=== PATIENT | female | born 1930 | race Two or more races ===

== ENCOUNTER 2016-12-03 22:40 | Inpatient (IN) | payer OTHER ==
--- NOTE | ~2016-12-03 | CR72 ---
[facility] A Service of [facility] & [facility] RADIOLOGY TEXT RESULTS PATIENT: EMILIANO MCCLOUD LOCATION: [facility] : 32 UNIT #: [id number] AGE: [address]: Yan Gonzalez MD SEX: F ORDER DR: [id number] [facility] [address] [place], [place] [address] [id number] I MR#: [id number] #: [id number] NAME: EMILIANO MCCLOUD : 1930 SEX: F STUDY DATE/TIME: 12/03/2016 22:31 UNIT: CED ROOM: 02855 STUDY DESCRIPTION: CR Chest Single View Portable Attending Physician: Yan Gonzalez M.D. Ordering Physician: Emmanuel Walls M.D. Primary Care Physician: No Primary Care Physician MEDICAL IMAGING REPORT This report is preliminary unless electronic signature is present EXAM Portable chest HISTORY Shortness of air and palpitations starting today. COMPARISON STUDIES 07/21/16 FINDINGS This portable view of the chest shows mild cardiomegaly. The lungs are clear. Minimal interstitial prominence is stable from prior studies. Bones are normal. Dictated by... Ebenezer Vivar M.D. THIS IS AN ELECTRONICALLY VERIFIED REPORT Ebenezer Vivar M.D. at 12/04/2016 9:55 PM REEMA/nathaniel TD: 12/04/2016 16:41 JOB #: [id number] MEDICAL IMAGING REPORT Page 1 of 1 COPY
--- NOTE | ~2016-12-03 | BMI ---
[facility] Nutrition Therapy DATE: 12/05/16 Patient: EMILIANO MCCLOUD Physician: LAURENT Address: [address] Room/Bed: [address] [place] [address], Zip: [place] [address] Admit Date: 12/03/16 Date of : [birth year] Height: 4 11 Weight: 214 97.5 HIGH BMI NOTE: DX: 86 yo female admitted for COPD ANTHROPOMETRICS: Ht: 4'11" Wt: 97.3 kg ( 214#) BMI: 43.3 DIET: Consistent carb INTERVENTION: 1. Consistent carb RECOMMENDATIONS: 1. Please add healthy heart diet restriction to promote gradual weight loss towards healthy BMI. RD will f/u per protocol. Respectfully, Snow Esteves, Moveman Yesica Ruiz MS, RD, LD [facility] cc: client file
--- NOTE | ~2016-12-03 | EKG ---
PATIENT: EMILIANO MCCLOUD UNIT #: [id number] Ventricular Rate: 162 BPM Atrial Rate: 153 BPM QRS Duration: 88 ms Q-T Interval: 316 ms QTC Calculation(Bezet): 518 ms Calculated R [place]: -36 degrees Calculated T [place]: 117 degrees Diagnosis Line: Atrial fibrillation with rapid ventricular Diagnosis Line: response Diagnosis Line: Left axis deviation Diagnosis Line: Septal infarct (cited on or before 04-DEC-2016) Diagnosis Line: ST and T wave abnormality, consider lateral ischemia Diagnosis Line: Abnormal ECG Diagnosis Line: When compared with ECG of 06-AUG-2016 01:07, Diagnosis Line: Vent. rate has increased BY 73 BPM Diagnosis Line: Serial changes of Septal infarct Present Diagnosis Line: Confirmed by OBDULIA CABALLERO MD ([id number]) on Diagnosis Line: 12/04/2016 3:57:19 PM INTERPRETING MD: JENNIFFER
--- NOTE | ~2016-12-03 | HP ---
Unit #: [id number] #: [id number] Patient: EMIILANO MCCLOUD [id number] [facility]. [place], [place] [address] [id number] MR#: [id number] NAME: EMILIANO MCCLOUD ROOM: 11347 Age: 86 Sex: F Admission Date: 12/04/2016 : 1930 Attending Physician: Yan Gonzalez M.D. Primary Care Physician: No Primary Care Physician HISTORY AND PHYSICAL CHIEF COMPLAINT Shortness of breath, cough and wheezing. DISCUSSION This is an 86-year-old female with a history of chronic A-fib, ejection fraction 50%, history of non-ST elevation NH, patient declined cardiac cath in the past, on medical treatment, hypertension, hyperlipidemia, diabetes, COPD, peripheral vascular disease. She is from [place], does not speak Greenlandic. Her daughter is at her bedside. She speaks fair Greenlandic. As per her, she has been having shortness of breath and cough and these symptoms got progressively worse. She says she has been out of Symbicort inhaler for almost two weeks and symptoms got worse. She came to the ER and found to be in COPD exacerbation with diffuse wheezing and eventually been admitted. She denies chest pain, she denies nausea, vomiting, fever. She has been having some cough which is mostly dry cough. PAST MEDICAL HISTORY 1. History of chronic A-fib with ejection fraction 55% with mild MR/left ventricular hypertrophy. Followed by Dr. Pranav Colmenares. 2. History of non-ST elevation NH in December 2013. She declined cardiac cath, on medical treatment. 3. Hyperlipidemia. 4. COPD. 5. Diabetes. 6. History of infectious colitis with lower GI bleed in November 2014. 7. Peripheral vascular disease. She has a history of head CT revealing mild chronic small vessel ischemic changes. 8. History of colonoscopy. 9. History of right axillary abscess requiring I and D in the past with positive MRSA. ALLERGIES She is allergic to penicillin. FAMILY HISTORY Negative for coronary artery disease, diabetes, hypertension in the family. SOCIAL HISTORY The patient is originally from [place], currently lives with her daughter. She does not drink alcohol. She smokes for about 56 years, now smoking very rarely. REVIEW OF SYSTEMS Unit #: [id number] #: [id number] Patient: EMILIANO MCCLOUD All review of systems negative except history of present illness. MEDICATIONS Medications from home as followin. Combivent inhaler p.r.n. 2. Hydroxyzine 10 mg three times daily p.r.n. 3. Nitro 0.4 mg sublingual p.r.n. 4. Symbicort 160/4.5, one puff b.i.d. 5. Potassium chloride 10 mEq daily. 6. Demadex 30 mg daily. 7. Starlix 120 mg three times daily. 8. Combivent four times daily. 9. Lopressor 50 mg daily. 10. Hydralazine 50 mg daily. 11. Stool softener 10 mg daily. 12. Rocaltrol 0.2 mg daily. 13. Imdur ER 60 mg daily. 14. Desyrel 25 mg at bedtime. 15. ProAir two puffs q.4 hours p.r.n. 16. Xarelto 15 mg daily. PHYSICAL EXAMINATION GENERAL: Elderly female lying in the bed comfortably, currently not in any distress. She is alert, awake, oriented x3. CURRENT VITAL SIGNS: Temperature 98.5, heart rate 96, respiratory rate 24, blood pressure 175/98. Oxygen 92% on room air. HEENT: Pupils equal, reactive to light and accommodation. Head is normocephalic, atraumatic. NECK: Supple. No JVD. LUNGS: Decreased air entry bilaterally with bilateral rhonchi. HEART: S1, S2. Regular. No murmur, no gallop. ABDOMEN: Soft, nontender, nondistended. Bowel sounds positive. EXTREMITIES: Trace pedal edema. NEURO: She is alert, oriented x4. Cranial nerves II-XII intact. No focal neurological deficits. Power 5/5. PSYCHIATRIC: She is anxious. SKIN: Normal, warm, dry. DIAGNOSTIC STUDIES LABORATORY: White count 10, hemoglobin 12, hematocrit 41, platelet 159. Troponin less than 0.05. INR is 1.1. Sodium 141, potassium 4.3, chloride 104, glucose 124, BUN 25, creatinine 1.4. LFTs within normal limits. Magnesium 1.7. Lactic acid 0.9. BNP 435. UA is negative. Troponin less than 0.05. IMAGING: Chest x-ray - no acute infiltrate. ASSESSMENT AND PLAN 1. Acute exacerbation of chronic obstructive pulmonary disease: Start on IV Solu-Medrol. Oxygen to keep respiration more than 19. 2. Chronic atrial fibrillation: That is controlled. Continue metoprolol and also Xarelto. 3. History of chronic diastolic congestive heart failure: Ejection fraction 55%. 4. History of coronary artery disease, on medical treatment: Patient received cardiac catheterization in the past. Unit #: [id number] #: [id number] Patient: EMILIANO MCCLOUD 5. Hypertension. 6. History of nonsustained ventricular tachycardia in the past. 7. Dyslipidemia. 8. Diabetes. 9. Deep venous thrombosis prophylaxis, on Xarelto. Dictated by Arnie Nogueira/conner TD: 12/04/2016 12:26 JOB #: [id number] HISTORY AND PHYSICAL Page 1 of 1 X X HISTORY AND PHYSICAL
--- NOTE | ~2016-12-03 | EKG ---
PATIENT: EMILIANO MCCLOUD UNIT #: [id number] Ventricular Rate: 96 BPM Atrial Rate: 107 BPM QRS Duration: 92 ms Q-T Interval: 342 ms QTC Calculation(Bezet): 432 ms Calculated R [place]: -36 degrees Calculated T [place]: 86 degrees Diagnosis Line: Atrial fibrillation Diagnosis Line: Left axis deviation Diagnosis Line: Cannot rule out Anterior infarct , age Diagnosis Line: undetermined Diagnosis Line: Abnormal ECG Diagnosis Line: No previous ECGs available Diagnosis Line: Confirmed by OBDULIA CABALLERO MD ([id number]) on Diagnosis Line: 12/04/2016 3:52:52 PM INTERPRETING MD: JENNIFFER
--- NOTE | ~2016-12-03 | EKG ---
PATIENT: EMILIANO MCCLOUD UNIT #: [id number] Ventricular Rate: 73 BPM Atrial Rate: 79 BPM QRS Duration: 92 ms Q-T Interval: 438 ms QTC Calculation(Bezet): 482 ms Calculated R [place]: -20 degrees Calculated T [place]: 42 degrees Diagnosis Line: Atrial fibrillation Diagnosis Line: Low voltage QRS Diagnosis Line: Abnormal ECG Diagnosis Line: When compared with ECG of 04-DEC-2016 07:49, Diagnosis Line: Vent. rate has decreased BY 89 BPM Diagnosis Line: Criteria for Septal infarct are no longer Present Diagnosis Line: ST no longer depressed in Anterolateral leads Diagnosis Line: T wave inversion no longer evident in Lateral Diagnosis Line: leads Diagnosis Line: Confirmed by CLAU VARGHESE MD ([id number]) on 12/06/2016 Diagnosis Line: 5:34:10 AM INTERPRETING MD: ABIMAEL FISHMAN
--- NOTE | ~2016-12-03 | CO ---
Unit #: [id number] #: [id number] Patient: EMILIANO MCCLOUD [id number] [facility]. [place], [place] [address] [id number] I MR#: [id number] NAME: EMILIANO MCCLOUD ROOM: 576 Age: 86 Sex: F Admission Date: 12/03/2016 : 1930 Attending Physician: Yan Gonzalez M.D. Consultation Date: 12/04/2016 CONSULTATION REPORT CHIEF COMPLAINT Shortness of air. HISTORY OF PRESENT ILLNESS Ms. 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 The patient presents with shortness of air, orthopnea, lower extremity edema. Despite use of oil process stillman phone, it was very difficult to have this interview and exam. Nevertheless, the patient states that her shortness of air comes on with a feeling like "seizures," it comes on. She feels a sense of choking, shaking, and her tongue tightens up and then it improves. She has a nonproductive cough. Her lower extremity has been "for some time." She also has orthopnea. She is unable to lay down. She must sit up. Her shortness of air has worsened over the last few days with cough. The patient denies palpitations. Denies heart racing. Denies syncope or near syncope. PAST MEDICAL HISTORY 1. COPD. Chronic atrial fibrillation, on anticoagulation with Xarelto. 2. Chronic diastolic congestive heart failure. 3. Arteriosclerotic heart disease, followed by Dr. Colmenares. The patient had non-STEMI in 12/2013. She has refused a cath. She has had no cardiac catheterization or angioplasty. No stents. No bypass. 4. Hypertension. 5. Nonsustained VT. 6. Dyslipidemia. 7. Diabetes mellitus type 2. 8. CVA. Echo on 02/22/2013 showed an EF 55%. No regional wall motion abnormalities. Mild concentric left ventricular hypertrophy. Mild MR. Trace TR. In 2010, her EF was 55%. Holter in 2013 showed longest pause of 1.42 seconds. Occasional single multifocal premature ventricular complex, 3-beat run of nonsustained VT. Several hours of atrial fibrillation with rapid ventricular response, 208 beats per minute. PAST SURGICAL HISTORY No surgeries. No cardiovascular surgeries. FAMILY HISTORY Negative for arteriosclerotic heart disease. SOCIAL HISTORY No tobacco, she quit one year ago. First response was sometime ago and then one year ago. ALLERGIES Unit #: [id number] #: [id number] Patient: EMILIANO MCCLOUD To codeine. HOME MEDICATIONS Calcitriol 0.25 mcg daily, Imdur 60 mg daily, Desyrel 25 mg at bedtime, ProAir two puffs every 2 hours p.r.n., Xarelto 15 mg daily, Starlix 120 mg t.i.d., Combivent 1 inhalation q.i.d., Lopressor 50 mg daily, hydralazine 50 mg daily, stool softener 100 mg daily p.r.n., hydroxyzine 10 mg t.i.d. p.r.n., nitroglycerin sublingual p.r.n., Symbicort 160/4.5 one puff b.i.d., potassium 10 mEq b.i.d., Demadex 30 mg daily, Combivent mini-nebs. REVIEW OF SYSTEMS Positive for shortness of breath. Positive for orthopnea. Positive for nonproductive cough. Positive for lower extremity edema. Negative for chest discomfort. Negative for palpitations. Negative for feeling of heart racing. Negative for syncope or near-syncope. Denies hematuria. Denies melena. PHYSICAL EXAMINATION GENERAL: Well developed, well nourished, elderly Tajik female in bed, in no acute distress. Currently in atrial fib, ventricular rate 120, is on Cardizem 15 mg. VITAL SIGNS: Temp 98.2, pulse is 126, respirations 22, blood pressure 123/68. Height 5 and no inches, weight 99.33 kg, BMI 40. HEENT: Normocephalic and atraumatic. No xanthelasma. Pupils equal, round, reactive to light. Extraocular movements intact. No jugular venous distention. No elevated CVP. LUNGS: Have end-expiratory wheezing posteriorly bilaterally with decreased breath sounds posteriorly. No crackles auscultated. HEART: S1 and S2. Atrial fibrillation with rapid ventricular rate. ABDOMEN: Positive bowel sounds. EXTREMITIES: Mild lower extremity edema. 2+ pulses. SKIN: No rash. SPINE: No scoliosis. DIAGNOSTIC STUDIES IMAGING STUDIES: Currently, no diagnostic x-rays. LABORATORY RESULTS: Chemistry reveals sodium 139, potassium 4.1, chloride 102, CO2 of 25, BUN 25, creatinine 1.4, glucose 275, calcium 9.2, phosphorus 3.6, magnesium 1.7, total protein 7.1, albumin 4.3, total bilirubin 0.7, bilirubin direct 0.1, bilirubin indirect 0.6, AST 22, ALT 16, alkaline phosphatase 85, amylase 18, lipase 17. BNP 435. Lactic acid 1.4. Coagulation PT 12.1, INR 1.1, PTT 29.9. Point of care troponin less than 0.05 x2. Hemoglobin 12.9, hematocrit 41.0, white blood cell count 10.0, platelet count of 159. UA is negative leukocyte esterase, negative nitrite, negative protein, negative glucose, negative ketone, negative bile, negative blood. ASSESSMENT/PLAN 1. Chronic atrial fibrillation with rapid ventricular rate. EKG show atrial fibrillation with rapid ventricular rate of 162 on admission. T wave inversion in I, aVL. Septal Q waves. Repeat EKG showed a ventricular rate of 96. Left axis deviation. Unable to rule out anterior infarct, age undetermined. Troponins are negative x2. The patient is currently on a Cardizem drip at 15 mg an hour. 2. Acute exacerbation of chronic obstructive pulmonary disease, managed by the primary service. The patient is receiving Levaquin 500 mg daily, Solu-Medrol, Mucinex, DuoNeb, Protonix. Sputum culture is pending. Unit #: [id number] #: [id number] Patient: EMILIANO MCCLOUD 3. Acute on chronic diastolic congestive heart failure with mild fluid volume overload. 4. History of hypertension, currently well controlled. 5. Dyslipidemia. 6. Diabetes. 7. History of cerebrovascular accident. The patient was seen by Dr. Jara. Her Lopressor was increased to 50 mg b.i.d., Cardizem oral was added 60 mg every 6 hours and wean Cardizem drip. Lasix 40 mg IV b.i.d. We are holding her Xarelto, Demadex, and hydralazine. Starting Lovenox 1 mg/kg subcu daily. Labs in the a.m.; CBC, BMP, troponin, EKG. Physicians will address cardiac cath again if the patient is agreeable currently. Past history, she has been on non-agreeable to a coronary catheterization. Dictated by... Tammy Arzate/lisandra TD: 12/05/2016 03:47 JOB #: [id number] CONSULTATION REPORT Page 1 of 1 X X CONSULTATION REPORT
--- NOTE | ~2016-12-03 | DS ---
Unit #: [id number] #: [id number] Patient: EMILIANO MCCLOUD [id number] [address] [id number] I MR#: [id number] NAME: EMILIANO MCCLOUD ROOM: 576 Age: 86 Sex: F Admission Date: 12/03/2016 : 1930 Discharge Date: 12/06/2016 Attending Physician: Aj Feng M.D. Primary Care Physician: No Primary Care Physician DISCHARGE SUMMARY ADMITTING DIAGNOSIS Shortness of breath, cough and wheeze. DISCHARGE DIAGNOSES 1. Shortness of breath, cough and wheeze. 2. Non-ST elevation myocardial infarction: The patient refused cardiac cath again in this hospitalization. 3. History of chronic atrial fibrillation. 4. History of congestive heart failure with an ejection fraction of 50%. 5. Chronic diastolic heart failure. 6. History of hypertension. 7. Hyperlipidemia. 8. Diabetes. 9. Chronic obstructive pulmonary disease. 10. Peripheral vascular disease. HISTORY OF PRESENTING ILLNESS The patient is an 86-year-old pleasant lady from [place] who is unable to speak [place] but we are able to communicate through an hourly sign language interpreter phone with difficulty. Presented to the emergency room with a chief complaint of shortness of breath and choking on the to the emergency room and she was admitted on the November,. HOSPITAL COURSE Her troponins were reviewed. The troponins were high up to 0.28. Dr. Sonia Jara of cardiology followed her. We spoke at length, cardiology team and myself with the patient, recommending a cardiac cath and patient is very scared to undergo the procedure. She says at my age I don't want to undergo any procedure and she was started on diuretics, antimicrobials, p.r.n. breathing treatments. She says she is feeling clinically better. Cardiology recommended no further workup from their standpoint and mentioned that she can be discharged and follow with her primary care in one to two weeks. I spoke with the patient at length again this afternoon through the hourly sign language interpreter. I explained to her if she changes her mind she can come back to the emergency room and we will be happy to try to get repeat workup done. On the day of the discharge, her physical examination: VITAL SIGNS - temperature 97.8, pulse rate 79, respirations 16, blood pressure 123/50. The patient is alert and oriented x3. Kindly note - I could only assess interpretation through the hourly sign language interpreter. HEENT - normocephalic, atraumatic. No icterus. PERRLA. Extraocular movements intact. NECK is supple. No JVD. HEART - S1, S2, irregular. CHEST - bilateral equal air entry, clear to auscultation. ABDOMEN - soft, nontender. EXTREMITIES - Unit #: [id number] #: [id number] Patient: EMILIANO MCCLOUD trace edema. DISCHARGE MEDICATIONS Her discharge medications include: 1. Starlix 120 mg p.o. three times a day. 2. Hydroxyzine 100 mg p.o. p.r.n. 3. Cardizem 90 mg p.o. twice daily. 4. Metoprolol 50 mg twice daily. 5. Colace 100 mg daily. 6. Demadex is stopped at this point. 7. Humibid LA 600 mg twice a day. 8. Hydralazine 50 mg p.o. daily. 9. Levemir 25 units subcu at bedtime. 10. Protonix 40 mg daily. 11. KCl 10 mEq p.o. daily. 12. Imdur 60 mg p.o. daily. 13. Nitroglycerin 0.4 mg sublingual p.r.n. for chest pain. 14. Rocaltrol 0.25 mcg p.o. daily. 15. Lasix 40 mg p.o. in the morning and 20 mg at bedtime. She was instructed to get a BMP on and follow with her primary care. All the discharge instructions explained in detail to the patient. Total time spent in her care - 35 minutes. Dictated by... Arnie Han TD: 12/07/2016 09:44 JOB #: [id number] DISCHARGE SUMMARY Page 1 of 1 X X DISCHARGE SUMMARY
--- NOTE | ~2016-12-03 | EKG ---
PATIENT: EMILIANO MCCLOUD UNIT #: [id number] Ventricular Rate: 128 BPM Atrial Rate: 156 BPM QRS Duration: 92 ms Q-T Interval: 328 ms QTC Calculation(Bezet): 478 ms Calculated R [place]: -36 degrees Calculated T [place]: 107 degrees Diagnosis Line: Atrial fibrillation with rapid ventricular Diagnosis Line: response Diagnosis Line: Left axis deviation Diagnosis Line: Septal infarct (cited on or before 03-DEC-2016) Diagnosis Line: Abnormal ECG Diagnosis Line: When compared with ECG of 03-DEC-2016 22:14, Diagnosis Line: (unconfirmed) Diagnosis Line: No significant change was found Diagnosis Line: Confirmed by OBDULIA CABALLERO MD ([id number]) on Diagnosis Line: 12/04/2016 3:54:25 PM INTERPRETING MD: JENNIFFER
[2016-12-03 22:29] LABS: BASOPHIL% 0.4 % (0-2.5); DIFF IND NO; EOSINOPHIL# 0.2 X10e3 (0-0.7); EOSINOPHIL% 1.7 % (0.0-7.0); HEMOGLOBIN 12.9 gm/dL (12.0-16.0); LYMPHOCYTE# 1.7 X10e3 (1.0-3.5); LYMPHOCYTE% 16.8 % (17.0-45.0); MEAN CELL VOLUME 79.1 FL (83-96); MEAN CORPUSCULAR HGB CONC 31.6 g/dL (30-36); MEAN PLATELET VOLUME 8.9 FL (6.5-11.5); MONOCYTE# 0.7 X10e3 (0-1.0); MONOCYTE% 7.2 % (3.0-12.0); NEUTROPHIL# 7.4 X10e3 (1.5-7.1); NEUTROPHIL% 73.9 % (40-75); PLATELET COUNT 159 X10e3 (140-420); RED BLOOD COUNT 5.18 X10e (3.90-5.30); RED CELL DISTRIBUTION WIDTH 16.3 % (11.0-15.5)
[2016-12-03 22:34] LABS: POC - CKMB <1.0 ng/mL (0.0-7.9); POC - TROPONIN <0.05 ng/mL (<=0.05)
[~2016-12-03 22:40] MED LIST: ACETAMINOPHEN PO; ACETAMINOPHEN325 MG PO; ALBUTEROL17 G1 IH; ALBUTEROL17 GM INH; ALLERCLEAR10 MG PO; AMIODARONE HCL100 MG PO; AMLODIPINE BES2.5 MG PO; AMLODIPINE BESYL5 MG PO; AMOXICILLIN500 M1 PO; APAP325 MG PO; ASPIRIN EC81 M1 PO; ASPIRIN ENTERI325 M1 PO; ASPIRIN81 M1 PO; ASPIRIN81 MG PO; AZITHROMYCIN250 MG PO; BACTRIM DS TABL1 TA1 PO; BAYER ASPIRIN325 M1 PO; BENZONATATE200 MG PO; CALCITRIOL0.25 MCG PO; CARVEDILOL12.5 MG PO; CIPRO250 MG PO; CIPRO500 MG/5 M PO; COLACE PO; COLCRYS0.6 MG PO; COMBIVENT INH14.7 GM INH; COMBIVENT MININEB; COMBIVENT U/D3 M2 INH; COMBIVENT U/D3 M4 INH; COREG3.125 MG PO; COREG6.25 MG PO; DEMADEX10 MG PO; DESYREL50 MG PO; DIGOX0.125 MG PO; DIOVAN80 M1 PO; DOXYCYCLINE HY100 M3 PO; DOXYCYCLINE150 MG PO; DUONEB 2.5-0.5 M3 ML NEB; EFFER-K 10 MEQ10 MEQ PO; ENALAPRIL MALEA10 MG PO; ENALAPRIL MALEA20 MG PO; ERGOCALCIF50000 UNIT PO; FLAGYL PO; FUROSEMIDE40 MG PO; HUMIBID-LA600 MG DOB; HYDRALAZINE HCL50 MG PO; HYDROCHLOROTH12.5 M1 PO; HYDROXYZINE HCL10 MG PO; IBUPROFEN800 MG PO; IMDUR-ER60 M1 PO; IMDUR30 MG PO; ISOSORBIDE MONO60 M1 PO; KCL PO; KLOR-CON SPRIN10 MEQ PO; LANOXIN PO; LASIX PO; LASIX20 MG PO; LEVAQUIN PO; LEVAQUIN750 M1 PO; LEVEMIR; LEVEMIR SUBQ; LEVEMIR100 UNITS/ SQ; LEVEMIR100 UNITS/ SUBQ; LISINOPRIL20 MG PO; LOPRESSOR PO; LUBRIDERM EXT; METOPROLOL SUCC50 MG PO; MILK OF MAGNESIA PO; MIRALAX17 GM PO; NITROGLYGERIN0.4 MG SL; NITROGYLCERIN SUBLINGUAL; NITROSTAT0.4 MG SL; NORCO1 TAB 10/3 PO; OMNICEF300 MG PO; PACERONE100 MG PO; PERCOCET 7.5/321 TAB PO; PHENERGAN SUPP25 M1 PR; POTASSIUM CHLO10 MEQ PO; PRAVACHOL PO; PRAVACHOL10 MG PO; PRAVACHOL20 MG; PRAVACHOL20 MG PO; PRAVASTATIN SOD10 MG PO; PRAVASTATIN SOD20 MG PO; PREDNISONE PO; PREDNISONE10 MG PO; PROAIR HFA8.5 GM INH; ROBITUSSIN100 MG/51 PO; SENNA S TABLET1 TAB PO; SPIRIVA18 MCG INH; STARLIX PO; STOOL SOFTENER100 M1 PO; SYMBICORT INH; SYMBICORT80 INH; TAMIFLU75 M1 PO; TESSALON200 MG PO; TOPROL XL PO; TORSEMIDE10 M1 PO; TRAZODONE PO; TUSSIN DM SYRU240 ML PO; VASOTEC20 MG PO; VIBRAMYCIN100 M1 DOB; VIBRAMYCIN100 M1 PO; VITAMIN D 22000 UNIT PO; VITAMIN D50000 UNIT PO; XARELTO15 MG PO; [UNRECOGNIZED DRUG - OTHER]
[2016-12-03 22:42] LABS: INR 1.1; PARTIAL THROMBOPLASTIN TIME 29.9 SECONDS (23.5-31.3); PROTHROMBIN TIME (PATIENT) 12.1 SECONDS (9.6-11.5)
[2016-12-03 22:53] LABS: ALBUMIN SERUM 4.3 g/dL (3.5-5.0); BILIRUBIN, DIRECT 0.1 mg/dL (0.0-0.2); BILIRUBIN,INDIRECT 0.6 mg/dL (0.0-0.9); BILIRUBIN,TOTAL 0.7 mg/dL (0.2-2.0); BUN/CREATININE RATIO 17.85; CALCIUM SERUM 9.5 mg/dL (8.4-10.2); CREATININE SERUM 1.4 mg/dL (0.6-1.4); GLOM FILT RATE Estimated 34.4 mL/min (>60); MAGNESIUM 1.7 mg/dL (1.6-3.0); PHOSPHOROUS 3.6 mg/dL (2.5-4.6); POTASSIUM 4.3 mmol/L (3.5-5.1); PROTEIN TOTAL SERUM 7.1 g/dL (6.0-8.3)
[2016-12-03 23:13] LABS: URINE SOURCE CLEAN CATCH
[2016-12-03 23:20] LABS: URINE APPEARANCE CLEAR; URINE BILIRUBIN NEG (NEG); URINE BLOOD NEG (NEG); URINE COLOR YELLOW; URINE GLUCOSE NEG (NEG); URINE KETONE NEG (NEG); URINE LEUKOCYTE ESTERASE NEG (NEG); URINE NITRATE NEG (NEG); URINE PROTEIN NEG (NEG); URINE SPECIFIC GRAVITY 1.008 (1.003-1.035); URINE UROBILINOGEN 0.2 MG/DL (NEG)
[2016-12-03 23:24] LABS: CULTURE INDICATED? NO
[2016-12-04 00:03] LABS: POC - CKMB <1.0 ng/mL (0.0-7.9); POC - TROPONIN <0.05 ng/mL (<=0.05)
[2016-12-04 06:11] LABS: BUN/CREATININE RATIO 17.85; CALCIUM SERUM 9.2 mg/dL (8.4-10.2); CREATININE SERUM 1.4 mg/dL (0.6-1.4); GLOM FILT RATE Estimated 34.4 mL/min (>60); POTASSIUM 4.1 mmol/L (3.5-5.1)
[2016-12-05 05:17] LABS: BASOPHIL% 0.1 % (0-2.5); HEMATOCRIT 37.5 % (35.0-45.0); HEMOGLOBIN 11.7 gm/dL (12.0-16.0); LYMPHOCYTE# 0.8 X10e3 (1.0-3.5); LYMPHOCYTE% 5.5 % (17.0-45.0); MEAN CELL VOLUME 78.7 FL (83-96); MEAN CORPUSCULAR HEMOGLOBIN 24.4 PG (28-34); MEAN CORPUSCULAR HGB CONC 31.1 g/dL (30-36); MEAN PLATELET VOLUME 9.3 FL (6.5-11.5); MONOCYTE# 0.3 X10e3 (0-1.0); MONOCYTE% 2.4 % (3.0-12.0); NEUTROPHIL# 12.7 X10e3 (1.5-7.1); PLATELET COUNT 157 X10e3 (140-420); RED BLOOD COUNT 4.77 X10e (3.90-5.30); RED CELL DISTRIBUTION WIDTH 16.3 % (11.0-15.5); WHITE BLOOD COUNT 13.8 X10e3 (4.0-10.5)
[2016-12-05 05:22] LABS: DIFF IND NO
[2016-12-05 06:04] LABS: BUN/CREATININE RATIO 30.62; CALCIUM SERUM 9.3 mg/dL (8.4-10.2); CREATININE SERUM 1.6 mg/dL (0.6-1.4); GLOM FILT RATE Estimated 29.3 mL/min (>60); POTASSIUM 4.5 mmol/L (3.5-5.1)
[2016-12-06 06:55] LABS: BUN/CREATININE RATIO 34.11; CALCIUM SERUM 8.9 mg/dL (8.4-10.2); CREATININE SERUM 1.7 mg/dL (0.6-1.4); GLOM FILT RATE Estimated 27.2 mL/min (>60)
[2016-12-06] MEDS ORDERED: ACETAMINOPHEN325 MG PO (18:06)
[2016-12-06] MEDS ORDERED: CARDIZEM30 M1 PO (18:11)
[2016-12-06] MEDS ORDERED: HUMIBID-LA600 MG PO (18:15)
[2016-12-06] MEDS ORDERED: LASIX PO ×2 (18:25→18:26)
== END 2016-12-06 20:01 | disposition home or self-care (01) | DRG 280 ==
LOC: CED 22:40 → CEDOF 23:58 → C5C 12-04 21:23
PROVIDERS: Emergency Medicine; Internal Medicine; Internal Medicine Cardiovascular Disease
DX: I21.4 Non-ST elevation (NSTEMI) myocardial infarction (principal); J96.01 Acute respiratory failure with hypoxia; I50.33 Acute on chronic diastolic (congestive) heart failure; J44.1 Chronic obstructive pulmonary disease with (acute) exacerbation; Z68.41 Body mass index [BMI] 40.0-44.9, adult; I25.10 Atherosclerotic heart disease of native coronary artery without angina pectoris; J84.10 Pulmonary fibrosis, unspecified; E11.9 Type 2 diabetes mellitus without complications; I25.2 Old myocardial infarction; E78.5 Hyperlipidemia, unspecified; I73.9 Peripheral vascular disease, unspecified; Z88.0 Allergy status to penicillin; N18.9 Chronic kidney disease, unspecified; I12.9 Hypertensive chronic kidney disease with stage 1 through stage 4 chronic kidney disease, or unspecified chronic kidney disease; F43.10 Post-traumatic stress disorder, unspecified; I48.2 Chronic atrial fibrillation; Z79.01 Long term (current) use of anticoagulants; Z86.73 Personal history of transient ischemic attack (TIA), and cerebral infarction without residual deficits; E66.01 Morbid (severe) obesity due to excess calories
CPT/HCPCS: 71010; 80048; 80076; 81003; 82150; 82553; 82947; 83605; 83690; 83735; 83880; 84100; 84484; 85025; 85610; 85730; 87040; 93005; 94640; 94760; 96374; 99285; J1650; J1815; J1940; J1956; J2920; J2930

== ENCOUNTER → 2016-12-08 | Outpatient (CLI) | payer OTHER ==
[~2016-12-08] MED LIST changes: +CARDIZEM30 M1 PO; +HUMIBID-LA600 MG PO
[2016-12-08 11:36] LABS: CREATININE SERUM 1.4 mg/dL (0.6-1.4); GLOM FILT RATE Estimated 34.4 mL/min (>60); POTASSIUM 3.3 mmol/L (3.5-5.1)
== END | disposition home or self-care (01) ==
LOC: CLAB 10:00
PROVIDERS: Nurse Practitioner Family
DX: E11.9 Type 2 diabetes mellitus without complications (principal); E78.5 Hyperlipidemia, unspecified
CPT/HCPCS: 36415; 80048

== ENCOUNTER 2017-02-19 03:48 | Emergency (ER) | payer OTHER ==
--- NOTE | ~2017-02-19 | CR72 ---
[facility] A Service of [facility] RADIOLOGY TEXT RESULTS PATIENT: EMILIANO MCCLOUD LOCATION: [facility] : 32 UNIT #: [id number] AGE: [address]: Emmanuel Walls MD SEX: F ORDER DR: [id number] [facility] [address] [place], [place] [address] [id number] MR#: [id number] Acc #: [id number] NAME: EMILIANO MCCLOUD : 1930 SEX: F STUDY DATE/TIME: 02/19/2017 4:56 UNIT: [facility] ROOM: STUDY DESCRIPTION: CR Chest Single View Portable Attending Physician: Emmanuel Walls M.D. Ordering Physician: Emmanuel Walls M.D. Primary Care Physician: Generic Doctor Not In System MEDICAL IMAGING REPORT This report is preliminary unless electronic signature is present EXAM Single view chest INDICATIONS Shortness of air; congestion for 5 days. COMPARISON Single portable AP view of the chest compared with 12/03/2016. FINDINGS The heart is enlarged. There is background COPD and some chronic interstitial change. This is similar to the prior studies. No pneumothorax. IMPRESSION 1. No acute findings or significant change. 2. Cardiomegaly, emphysema, and chronic interstitial changes. Dictated by... Tano Wagoner M.D. THIS IS AN ELECTRONICALLY VERIFIED REPORT Tano Wagoner M.D. at 02/19/2017 10:28 PM TG/aimee TD: 02/19/2017 13:05 JOB #: [id number] MEDICAL IMAGING REPORT Page 1 of 1 COPY
== END 2017-02-19 07:00 | disposition home or self-care (01) ==
LOC: CED 03:48
DX: F11.129 Opioid abuse with intoxication, unspecified (principal); F15.129 Other stimulant abuse with intoxication, unspecified; F17.210 Nicotine dependence, cigarettes, uncomplicated; Z98.890 Other specified postprocedural states
CPT/HCPCS: 71010; 82947; 94640; 99285